=== PATIENT | male | born 1930 | race Caucasian/White ===

== ENCOUNTER 2016-06-03 06:06 | Inpatient (IN) | payer OTHER ==
[~2016-06-03] VITALS: Ht 165.1 cm; Wt 79.3 kg
[~2016-06-03 06:06] MED LIST: ARICEPT5 MG PO; ASPIR-TRIN325 M1 PO; ASPIRIN81 M2 PO; AUGMENTIN875 MG PO; AVINza PO; Aricept PO; BENADRYL50 MG PO; Benadryl PO; CELEBREX200 MG PO; CHOLESTEROL PILL PO; CITRACAL + D E1 EACH PO; CITRACAL SOFT1 EACH PO; COLACE PO; COLACE100 MG PO; CYMBALTA30 MG PO; CYMBALTA60 MG PO; Caltrate 600+D Plus PO; Colace PO; Coumadin,Jantoven PO; Cymbalta PO; DILAUDID2 MG PO; DIPHEDRYL25 M3 PO; DULOXETINE HCL60 MG PO; EX-LAX MAXIMUM25 MG PO; FEOSOL325 MG PO; FOLIC ACID0.4 MG PO; GABAPENTIN400 MG PO; LAXA BASIC PO; LISINOPRIL20 MG PO; LIVALO1 MG PO; LOPRESSOR12.5 MG PO; LOPRESSOR25 MG PO; MEGACE20 MG PO; METAMUCIL CAPSU1 CAP PO; MORPHINE SULFAT30 M1 PO; MORPHINE SULFAT30 M2 PO; MS Contin,Oramorph S PO; MULTI VITAMIN1 EACH PO; Marinol PO; NAMENDA10 MG PO; Neurontin PO; PANTOPRAZOLE SO40 MG PO; PROBIOTIC1 EAC1 PO; Percocet 5/325,Endoc PO; THERAGRAN1 TABLET PO; VITAMIN B-122000 MC1 PO; VITAMIN E100 UNIT PO; Vicodin,Norco 5/325 PO; ZESTRIL,PRINIVI40 M1 PO; celeBREX PO
[2016-06-03 07:36] LABS: BASOPHIL COUNT 0.1 K/uL (0-0.1); EOSINOPHIL (%) 0.2 % (0-5); HEMATOCRIT 49.4 % (38.0-50.0); IMMATURE GRANULOCYTE (%) 0.3 % (0.0-0.7); IMMATURE GRANULOCYTE COUNT 0.1 K/uL; LYMPHOCYTE COUNT 0.6 K/uL (1.0-2.8); MCH 30.4 PG (29.0-34.0); MCHC 32.4 G/DL (30.0-36.0); MCV 93.7 FL (86-99); MEAN PLAT.VOLUME 10.8 uM^3 (9.0-12.4); MONOCYTE (%) 5.4 % (3-12); MONOCYTE COUNT 0.8 K/uL (0-0.8); NEUTROPHIL (%) 89.9 % (45-76); PLATELET COUNT 247 K/uL (156-360); RBC DIS.WIDTH-CV 13.2 % (11.8-14.6); RBC DIS.WIDTH-SD 45.8 % (39-53); RED BLOOD COUNT 5.27 M/uL (4.00-5.50); WHITE BLOOD COUNT 14.5 K/uL (4.1-10.2)
[2016-06-03 08:00] LABS: INTER. NORMALIZED RATIO 1.1; PROTHROMBIN TIME 10.7 (9.2-11.2); PTT 25.8 (25-32)
[2016-06-03 08:05] LABS: ANION GAP 11 MEQ/L (2-14); CHLORIDE 105 MEQ/L (99-109); POTASSIUM 3.7 MEQ/L (3.7-5.4); SAMPLE HEMOLYSIS CHECK 0; SAMPLE ICTERIC CHECK 0; SAMPLE LIPEMIA CHECK 0; SODIUM 144 MEQ/L (136-147); TOTAL BILIRUBIN 0.7 MG/DL (0.0-1.0)
[2016-06-03 08:10] LABS: ALKALINE PHOSPHATASE 73 IU/L (3-129); GFR ESTIMATE (CALCULATED) 47 mL/min/; GLUCOSE 136 mg/dL (70-99); UREA NITROGEN (BUN) 22 mg/dL (9-23)
[2016-06-03 08:12] LABS: TROP-I INTERPRETATION NEGATIVE; TROPONIN-I 0.01 ng/mL (0.0-0.30)
[2016-06-03 08:36] LABS: D-DIMER ELISA > 4.00 mg/L FEU (< 0.57)
[2016-06-03] MEDS ORDERED: STOOL SOFTENER100 MG PO (11:44)
[2016-06-03] MEDS ORDERED: VITAMIN E400 UNIT PO (11:45)
[2016-06-03] MEDS ORDERED: EX-LAX MAXIMUM25 MG PO (11:46)
[2016-06-03] MEDS ORDERED: CALCIUM 600 +1 EAC3 PO (11:47)
[2016-06-03] MEDS ORDERED: FIBER500 MG PO (12:19)
[2016-06-03] MEDS ORDERED: DIPHENHYDRAMINE50 M1 PO (12:42)
[2016-06-03] MEDS ORDERED: HYDROMORPHONE HC2 MG PO (12:42)
[2016-06-03 12:45] VITALS: BP 134/74
[2016-06-03 13:07] VITALS: BP 134/70
[2016-06-03 16:26] VITALS: BP 111/67
[2016-06-04] VITALS: BP 128/82
[2016-06-04 07:20] LABS: ANION GAP 8 MEQ/L (2-14); CHLORIDE 106 MEQ/L (99-109); GFR ESTIMATE (CALCULATED) 51 mL/min/; POTASSIUM 3.9 MEQ/L (3.7-5.4); SAMPLE HEMOLYSIS CHECK 0; SAMPLE ICTERIC CHECK 0; SAMPLE LIPEMIA CHECK 0; SODIUM 142 MEQ/L (136-147); UREA NITROGEN (BUN) 21 mg/dL (9-23)
[2016-06-04 07:23] LABS: GLUCOSE 100 mg/dL (70-99)
[2016-06-04 07:49] LABS: HEMATOCRIT 39.6 % (38.0-50.0); MCH 30.2 PG (29.0-34.0); MCHC 31.8 G/DL (30.0-36.0); MEAN PLAT.VOLUME 11.7 uM^3 (9.0-12.4); PLATELET COUNT 186 K/uL (156-360); RBC DIS.WIDTH-CV 13.6 % (11.8-14.6); RBC DIS.WIDTH-SD 47.8 % (39-53)
[2016-06-04 07:53] VITALS: BP 122/69
[2016-06-04 08:04] LABS: RED BLOOD COUNT 4.17 M/uL (4.00-5.50); WHITE BLOOD COUNT 9.8 K/uL (4.1-10.2)
[2016-06-04 13:34] LABS: INFLUENZA A VIRAL ANTIGEN NEGATIVE; INFLUENZA B VIRAL ANTIGEN NEGATIVE
[2016-06-04 14:21] LABS: METH RESISTANT S AUREUS PCR NEGATIVE (NEGATIVE)
[2016-06-04 14:23] LABS: PROBE CHECK PASS; SPECIMEN PROCESSING CONTROL PASS
[2016-06-04 15:30] VITALS: BP 120/64
[2016-06-04 23:55] VITALS: BP 144/86
[2016-06-05 07:17] VITALS: BP 157/86
[2016-06-05 08:26] LABS: INTERNAL CONTROL VALID? YES
[2016-06-05] MEDS ORDERED: LEVAQUIN500 MG PO (11:46)
[2016-06-05] MEDS ORDERED: VENTOLIN HFA18 GM IH (11:46)
== END 2016-06-05 14:32 | disposition home or self-care (01) | DRG 194 ==
LOC: EME 06:06 → EDOF 10:34 → 5SOUTH 12:42
PROVIDERS: Emergency Medicine; Internal Medicine
DX: J18.9 Pneumonia, unspecified organism (principal); J98.11 Atelectasis; F11.20 Opioid dependence, uncomplicated; N18.3 Chronic kidney disease, stage 3 (moderate); Z66 Do not resuscitate; I25.10 Atherosclerotic heart disease of native coronary artery without angina pectoris; E78.5 Hyperlipidemia, unspecified; G89.4 Chronic pain syndrome; K59.03 Drug induced constipation; I12.9 Hypertensive chronic kidney disease with stage 1 through stage 4 chronic kidney disease, or unspecified chronic kidney disease; M54.5 Low back pain; Z96.642 Presence of left artificial hip joint; Z96.653 Presence of artificial knee joint, bilateral; N20.0 Calculus of kidney; K76.89 Other specified diseases of liver; G30.9 Alzheimer's disease, unspecified; F02.80 Dementia in other diseases classified elsewhere, unspecified severity, without behavioral disturbance, psychotic disturbance, mood disturbance, and anxiety; I25.2 Old myocardial infarction; Z98.1 Arthrodesis status; Z87.442 Personal history of urinary calculi; Z98.61 Coronary angioplasty status
CPT/HCPCS: 71020; 71250; 74022; 78582; 80048; 80053; 81003; 83880; 84484; 85025; 85027; 85379; 85610; 85730; 87040; 87449; 87502; 87641; 93005; 93970; 94799; 99281; 99285; A9539; A9540; J0456; J0696; J1644; J7050

== ENCOUNTER 2016-09-05 04:14 | Inpatient (IN) | payer OTHER ==
[~2016-09-05] VITALS: Ht 165.1 cm; Wt 85.2 kg
[~2016-09-05 04:14] MED LIST changes: +CALCIUM 600 +1 EAC3 PO; +DIPHENHYDRAMINE50 M1 PO; +FIBER500 MG PO; +HYDROMORPHONE HC2 MG PO; +LEVAQUIN500 MG PO; +STOOL SOFTENER100 MG PO; +VENTOLIN HFA18 GM IH; +VITAMIN E400 UNIT PO
[2016-09-05 04:46] LABS: HEMATOCRIT 41.8 % (38.0-50.0); MCH 30.2 PG (29.0-34.0); MCHC 32.8 G/DL (30.0-36.0); MCV 92.3 FL (86-99); MEAN PLAT.VOLUME 10.7 uM^3 (9.0-12.4); PLATELET COUNT 187 K/uL (156-360); RBC DIS.WIDTH-CV 13.5 % (11.8-14.6); RBC DIS.WIDTH-SD 45.7 % (39-53); RED BLOOD COUNT 4.53 M/uL (4.00-5.50)
[2016-09-05 04:56] LABS: CHLORIDE 103 mEq/L (99-109); POTASSIUM 3.9 mEq/L (3.7-5.4); SODIUM 139 mEq/L (136-147)
[2016-09-05 04:57] LABS: GLUCOSE 82 mg/dL (70-99)
[2016-09-05 04:58] LABS: ANION GAP 10 MEQ/L (2-14)
[2016-09-05 05:01] LABS: GFR ESTIMATE (CALCULATED) 56 mL/min/
[2016-09-05 05:02] LABS: UREA NITROGEN (BUN) 19 mg/dL (9-23)
[2016-09-05 05:19] LABS: TROP-I INTERPRETATION NEGATIVE; TROPONIN-I < 0.01 ng/mL (0.0-0.30)
[2016-09-05] MEDS ORDERED: NEO-SYNEPHRINE15 M4 BOTH NARES (09:15)
[2016-09-05] MEDS ORDERED: MIRALAX255 GM PO (09:15)
[2016-09-05 13:26] LABS: TROP-I INTERPRETATION NEGATIVE; TROPONIN-I < 0.01 ng/mL (0.0-0.30)
[2016-09-05 15:45] VITALS: BP 133/74
[2016-09-05 20:12] VITALS: BP 131/85
[2016-09-05 21:27] LABS: TROP-I INTERPRETATION NEGATIVE; TROPONIN-I < 0.01 ng/mL (0.0-0.30)
[2016-09-06] VITALS: BP 133/68
[2016-09-06 03:36] VITALS: BP 137/72
[2016-09-06 08:59] VITALS: BP 179/87
[2016-09-06 09:20] LABS: POINT-OF-CARE METER ID UU13113725
[2016-09-06 09:31] VITALS: BP 138/68
[2016-09-06 16:40] VITALS: BP 144/81
[2016-09-06 19:58] VITALS: BP 177/84
[2016-09-07 07:21] VITALS: BP 170/80
[2016-09-07 12:36] VITALS: BP 172/74
[2016-09-07 16:10] VITALS: BP 179/86
[2016-09-07 17:20] VITALS: BP 142/84
[2016-09-07] MEDS ORDERED: AUGMENTIN875 MG PO (17:23)
[2016-09-07] MEDS ORDERED: NORVASC5 MG PO (17:23)
== END 2016-09-07 18:37 | disposition home health service (06) | DRG 193 ==
LOC: EME 04:14 → EDOF 08:35 → 5EAST 08:35
PROVIDERS: Hospitalist; Internal Medicine
DX: J18.9 Pneumonia, unspecified organism (principal); G93.41 Metabolic encephalopathy; F03.90 Unspecified dementia, unspecified severity, without behavioral disturbance, psychotic disturbance, mood disturbance, and anxiety; G89.29 Other chronic pain; I12.9 Hypertensive chronic kidney disease with stage 1 through stage 4 chronic kidney disease, or unspecified chronic kidney disease; N18.3 Chronic kidney disease, stage 3 (moderate); I25.10 Atherosclerotic heart disease of native coronary artery without angina pectoris; R09.02 Hypoxemia; Z96.642 Presence of left artificial hip joint; F32.9 Major depressive disorder, single episode, unspecified; Z96.653 Presence of artificial knee joint, bilateral; Z79.82 Long term (current) use of aspirin; I25.2 Old myocardial infarction; Z95.5 Presence of coronary angioplasty implant and graft; Z98.1 Arthrodesis status
CPT/HCPCS: 71020; 80048; 82948; 83605; 83880; 84484; 85027; 87040; 93005; 93306; 99202; 99281; 99285; J1650; J1956; J2405; J7030

== ENCOUNTER 2016-12-02 01:54 | Observation (INO) | payer OTHER ==
[~2016-12-02] VITALS: Ht 167.6 cm; Wt 84.7 kg
[~2016-12-02 01:54] MED LIST changes: +MIRALAX255 GM PO; +NEO-SYNEPHRINE15 M4 BOTH NARES; +NORVASC5 MG PO
[2016-12-02 02:34] LABS: HEMATOCRIT 41.2 % (38.0-50.0); MCH 30.2 PG (29.0-34.0); MCHC 32.3 G/DL (30.0-36.0); MCV 93.6 FL (86-99); PLATELET COUNT 175 K/uL (156-360); RBC DIS.WIDTH-CV 13.3 % (11.8-14.6); RBC DIS.WIDTH-SD 46.1 % (39-53); WHITE BLOOD COUNT 5.5 K/uL (4.1-10.2)
[2016-12-02 02:49] LABS: CHLORIDE 105 mEq/L (99-109); POTASSIUM 3.9 mEq/L (3.7-5.4); SODIUM 141 mEq/L (136-147)
[2016-12-02 02:50] LABS: GLUCOSE 100 mg/dL (70-99)
[2016-12-02 02:52] LABS: ANION GAP 9 MEQ/L (2-14)
[2016-12-02 02:54] LABS: GFR ESTIMATE (CALCULATED) 51 mL/min/
[2016-12-02 02:55] LABS: UREA NITROGEN (BUN) 18 mg/dL (9-23)
[2016-12-02 02:59] LABS: TROP-I INTERPRETATION NEGATIVE; TROPONIN-I < 0.01 ng/mL (0.0-0.30)
[2016-12-02 08:12] VITALS: BP 143/70
[2016-12-02 10:50] LABS: ANION GAP 9 MEQ/L (2-14); CHLORIDE 104 MEQ/L (99-109); GFR ESTIMATE (CALCULATED) > 59 mL/min/; GLUCOSE 119 mg/dL (70-99); SAMPLE HEMOLYSIS CHECK 0; SAMPLE ICTERIC CHECK 0; SAMPLE LIPEMIA CHECK 0; SODIUM 140 MEQ/L (136-147); UREA NITROGEN (BUN) 16 mg/dL (9-23)
[2016-12-02 10:53] LABS: TROP-I INTERPRETATION NEGATIVE; TROPONIN-I < 0.01 ng/mL (0.0-0.30)
[2016-12-02 11:56] VITALS: BP 132/70
[2016-12-02 15:16] LABS: TROP-I INTERPRETATION NEGATIVE; TROPONIN-I < 0.01 ng/mL (0.0-0.30)
[2016-12-02] MEDS ORDERED: NEO-SYNEPHRINE-15 M1 BOTH NARES (15:47)
[2016-12-02 15:54] VITALS: BP 138/79
== END 2016-12-02 16:25 | disposition home or self-care (01) ==
LOC: EME 01:54 → EDOF 05:26 → ENRESERV 05:32 → 5WEST 08:00
PROVIDERS: Internal Medicine; Physician Assistant Medical
DX: R06.02 Shortness of breath (principal); I25.10 Atherosclerotic heart disease of native coronary artery without angina pectoris; Z95.5 Presence of coronary angioplasty implant and graft; I25.2 Old myocardial infarction; I12.9 Hypertensive chronic kidney disease with stage 1 through stage 4 chronic kidney disease, or unspecified chronic kidney disease; N18.3 Chronic kidney disease, stage 3 (moderate); E78.5 Hyperlipidemia, unspecified; F03.90 Unspecified dementia, unspecified severity, without behavioral disturbance, psychotic disturbance, mood disturbance, and anxiety; G89.29 Other chronic pain; M54.9 Dorsalgia, unspecified; Z87.442 Personal history of urinary calculi; Z98.1 Arthrodesis status; Z96.653 Presence of artificial knee joint, bilateral; Z96.642 Presence of left artificial hip joint; Z88.5 Allergy status to narcotic agent; Z88.8 Allergy status to other drugs, medicaments and biological substances; Z66 Do not resuscitate
CPT/HCPCS: 71020; 80048; 80048 91; 83880; 84484; 85027; 93005; 94640; 99281; 99285; G0378; J1644

== ENCOUNTER 2017-02-16 09:02 | Emergency (ER) | payer OTHER ==
[~2017-02-16] VITALS: Ht 165.1 cm; Wt 83.4 kg
[~2017-02-16 09:02] MED LIST changes: +NEO-SYNEPHRINE-15 M1 BOTH NARES
[2017-02-16 10:49] LABS: EOSINOPHIL COUNT 0.1 K/uL (0-0.3); HEMATOCRIT 42.9 % (38.0-50.0); IMMATURE GRANULOCYTE (%) 0.3 % (0.0-0.7); INSTRUMENT ABS NEUTROPHIL CT 8.3 K/uL; LYMPHOCYTE COUNT 0.9 K/uL (1.0-2.8); MCH 30.4 PG (29.0-34.0); MCHC 32.2 G/DL (30.0-36.0); MCV 94.5 FL (86-99); MEAN PLAT.VOLUME 11.3 uM^3 (9.0-12.4); MONOCYTE (%) 6.9 % (3-12); MONOCYTE COUNT 0.7 K/uL (0-0.8); NEUTROPHIL (%) 82.4 % (45-76); NEUTROPHIL COUNT 8.3 K/uL (1.8-6.4); PLATELET COUNT 185 K/uL (156-360); RBC DIS.WIDTH-CV 13.4 % (11.8-14.6); RBC DIS.WIDTH-SD 46.4 % (39-53); RED BLOOD COUNT 4.54 M/uL (4.00-5.50)
[2017-02-16 10:57] LABS: CHLORIDE 103 mEq/L (99-109); SODIUM 139 mEq/L (136-147)
[2017-02-16 11:00] LABS: GLUCOSE 102 mg/dL (70-99)
[2017-02-16 11:01] LABS: ANION GAP 10 MEQ/L (2-14)
[2017-02-16 11:02] LABS: TOTAL BILIRUBIN 0.9 mg/dL (0.0-1.0)
[2017-02-16 11:03] LABS: ALKALINE PHOSPHATASE 70 IU/L (3-129); GFR ESTIMATE (CALCULATED) 51 mL/min/
[2017-02-16 11:05] LABS: UREA NITROGEN (BUN) 18 mg/dL (9-23)
[2017-02-16 11:12] LABS: TROP-I INTERPRETATION NEGATIVE; TROPONIN-I < 0.01 ng/mL (0.0-0.30)
[2017-02-16 11:16] LABS: ADD MIUA? YES; BILIRUBIN NEGATIVE; BLOOD SMALL; COLOR YELLOW ((YELLOW)); GLUCOSE (STRIP) NEGATIVE; KETONES NEGATIVE; LEUKOCYTES SMALL; NITRITE NEGATIVE; PROTEIN (STRIP) NEGATIVE; SPECIFIC GRAVITY 1.015 (1.000-1.030); UROBILINOGEN 0.2 MG/DL (0.2-1.0)
[2017-02-16 11:23] LABS: BACTERIA 1+ /HPF; EPITHELIAL CELLS RARE /HPF; MUCUS TRACE /LPF; UCUL ADDED? YES; WHITE BLOOD CELLS 40-50 /HPF (0-5)
[2017-02-16] MEDS ORDERED: AUGMENTIN875 MG PO (13:14)
[2017-02-16 14:16] VITALS: BP 124/67
== END 2017-02-16 14:19 | disposition home or self-care (01) ==
LOC: EME 09:02
PROVIDERS: Emergency Medicine
DX: N39.0 Urinary tract infection, site not specified (principal); R53.1 Weakness; M54.9 Dorsalgia, unspecified; G89.29 Other chronic pain; F03.90 Unspecified dementia, unspecified severity, without behavioral disturbance, psychotic disturbance, mood disturbance, and anxiety; I10 Essential (primary) hypertension; I25.2 Old myocardial infarction; F32.9 Major depressive disorder, single episode, unspecified; Z95.5 Presence of coronary angioplasty implant and graft; Z87.442 Personal history of urinary calculi; F41.9 Anxiety disorder, unspecified; Z79.82 Long term (current) use of aspirin; Z88.8 Allergy status to other drugs, medicaments and biological substances; Z85.828 Personal history of other malignant neoplasm of skin
CPT/HCPCS: 71010; 80053; 81003; 83605; 84484; 85025; 87040; 87086; 87502; 93005; 99281; 99285; J0696; J2270; J2405

== ENCOUNTER 2017-02-28 20:19 | Emergency (ER) | payer OTHER ==
[~2017-02-28] VITALS: Ht 162.6 cm; Wt 84.6 kg
[2017-02-28 20:54] LABS: EOSINOPHIL (%) 2.7 % (0-5); EOSINOPHIL COUNT 0.2 K/uL (0-0.3); HEMATOCRIT 41.4 % (38.0-50.0); IMMATURE GRANULOCYTE (%) 0.3 % (0.0-0.7); INSTRUMENT ABS NEUTROPHIL CT 3.3 K/uL; LYMPHOCYTE COUNT 1.7 K/uL (1.0-2.8); MCH 30.6 PG (29.0-34.0); MCHC 33.1 G/DL (30.0-36.0); MCV 92.4 FL (86-99); MEAN PLAT.VOLUME 10.6 uM^3 (9.0-12.4); MONOCYTE COUNT 0.6 K/uL (0-0.8); NEUTROPHIL (%) 56.5 % (45-76); NEUTROPHIL COUNT 3.3 K/uL (1.8-6.4); PLATELET COUNT 203 K/uL (156-360); RBC DIS.WIDTH-CV 13.5 % (11.8-14.6); RBC DIS.WIDTH-SD 46.4 % (39-53); RED BLOOD COUNT 4.48 M/uL (4.00-5.50); WHITE BLOOD COUNT 5.8 K/uL (4.1-10.2)
[2017-02-28 21:03] LABS: CHLORIDE 104 mEq/L (99-109); POTASSIUM 3.9 mEq/L (3.7-5.4); SODIUM 137 mEq/L (136-147)
[2017-02-28 21:05] LABS: GLUCOSE 126 mg/dL (70-99)
[2017-02-28 21:07] LABS: ANION GAP 10 MEQ/L (2-14)
[2017-02-28 21:09] LABS: GFR ESTIMATE (CALCULATED) 41 mL/min/
[2017-02-28 21:10] LABS: UREA NITROGEN (BUN) 19 mg/dL (9-23)
[2017-02-28 22:14] LABS: ADD MIUA? YES; BILIRUBIN NEGATIVE; BLOOD NEGATIVE; COLOR YELLOW ((YELLOW)); GLUCOSE (STRIP) NEGATIVE; KETONES NEGATIVE; LEUKOCYTES SMALL; NITRITE NEGATIVE; PROTEIN (STRIP) NEGATIVE; SPECIFIC GRAVITY 1.011 (1.000-1.030); UROBILINOGEN 0.2 MG/DL (0.2-1.0)
[2017-02-28 22:21] LABS: BACTERIA RARE /HPF; EPITHELIAL CELLS RARE /HPF; MUCUS TRACE /LPF; UCUL ADDED? YES
[2017-03-01] MEDS ORDERED: ZYPREXA2.5 MG PO (00:32)
[2017-03-01 00:35] VITALS: BP 135/97
== END 2017-03-01 00:41 | disposition home or self-care (01) ==
LOC: EME 20:19
DX: F03.90 Unspecified dementia, unspecified severity, without behavioral disturbance, psychotic disturbance, mood disturbance, and anxiety (principal); N39.0 Urinary tract infection, site not specified; R45.1 Restlessness and agitation; I10 Essential (primary) hypertension; Z85.828 Personal history of other malignant neoplasm of skin; Z79.82 Long term (current) use of aspirin
CPT/HCPCS: 70450; 71010; 80048; 81003; 85025; 87086; 99281; 99285